=== PATIENT | female | born 1975 | race Caucasian/White ===

== ENCOUNTER → 2017-12-24 | Outpatient (REF) | payer OTHER ==
[2017-12-24 13:28] LABS: INFLUENZA A AMPLIFICATION NEGATIVE (NEGATIVE); INFLUENZA B AMPLIFICATION POSITIVE (NEGATIVE)
== END ==
LOC: M LAB REF 12:40
DX: R05 Cough (principal)

== ENCOUNTER 2018-03-01 09:34 | Day surgery (SDC) | payer OTHER ==
[~2018-03-01 09:34] MED LIST: KETOROLAC 60 MG/2 ML VIAL (J1885) As Ordered; LIDOCAINE 2% INJ 100 MG/5 ML SDV (FOR ANES.) As Ordered; MIDAZOLAM INJ 2 MG/2 ML VIAL (J2250) As Ordered; ONDANSETRON 4MG/2ML VIAL (J2405) As Ordered; PROPOFOL 200 MG/20 ML VIAL As Ordered; fentaNYL 100 MCG/2 ML INJECTION (J3010) As Ordered
[2018-03-01] MEDS: LR 1,000 ML IV (10:14)
[2018-03-01] MEDS: BUPIVACAINE HCL 0.5% 30 ML VIAL As Ordered (11:20)
[2018-03-01] MEDS: LIDOCAINE 2% MDV 20 ML VIAL As Ordered (11:20)
[2018-03-01] MEDS ORDERED: PROPOFOL 200 MG/20 ML VIAL As Ordered ×2 (11:41→11:48)
[2018-03-01] MEDS ORDERED: ONDANSETRON 4MG/2ML VIAL (J2405) As Ordered (11:50)
[2018-03-01] MEDS: BACITRACIN PWD 50,000 UNITS VIAL As Ordered (11:53)
[2018-03-01] MEDS: NEOSPORIN GU IRRIG 20 ML VIAL As Ordered (11:55)
[2018-03-01] MEDS: dexameTHASONE 4 MG/ML 1ML VIAL (J1100) As Ordered (11:55)
== END 2018-03-01 13:46 | disposition home or self-care (01) ==
LOC: M SDC 09:34
DX: G57.61 Lesion of plantar nerve, right lower limb (principal); M79.671 Pain in right foot; M32.10 Systemic lupus erythematosus, organ or system involvement unspecified; Z79.899 Other long term (current) drug therapy
CPT/HCPCS: 28080

== ENCOUNTER → 2018-04-16 | Outpatient (CLI) | payer OTHER ==
[2018-04-16 18:32] LABS: BASO # 0.1 10^3/uL (0.0-0.2); BASO % 0.7 % (0.0-1.0); EOS # 0.1 10^3/uL (0.0-0.50); EOS % 0.5 % (0.0-3.0); HEMATOCRIT 43.9 % (36.0-47.0); HEMOGLOBIN 14.7 g/dl (12.0-15.5); IMMATURE GRANULOCYTE % 0.4 % (0-3.0); LYMPH # 2.9 10^3/uL (1.5-4.5); LYMPH % 31.3 % (24.0-44.0); MEAN CORPUSCULAR HEMOGLOBIN 31.1 pg (27.0-33.0); MEAN CORPUSCULAR HGB CONC 33.5 g/dl (32.0-36.5); MEAN CORPUSCULAR VOLUME 92.8 fl (80.0-96.0); MONO # 0.5 10^3/uL (0.0-0.8); MONO % 5.8 % (0.0-5.0); NEUTROPHILS # 5.6 10^3/uL (1.8-7.7); NEUTROPHILS % 61.3 % (36.0-66.0); PLATELET COUNT, AUTOMATED 271 10^3/uL (150-450); RED BLOOD COUNT 4.73 10^6/uL (4.00-5.40); RED CELL DISTRIBUTION WIDTH 11.8 % (11.5-14.5); WHITE BLOOD COUNT 9.2 10^3/uL (4.0-10.0)
[2018-04-16 18:46] LABS: ALT/SGPT 40 U/L (12-78); AST/SGOT 23 U/L (7-37); C REACTIVE PROTEIN QUANTITATIV < 0.30 MG/DL (0.00-0.30); COMPLEMENT C3 152 MG/DL (90-180); COMPLEMENT C4 26.8 MG/DL (10-40); GLOMERULAR FILTRATION RATE > 60.0 (>58)
[2018-04-16 19:42] LABS: ERYTHROCYTE SEDIMENTATION RATE 6 mm/hr (0-20)
[2018-04-18 14:16] LABS: ANTI DOUBLE STRAND-DNA AB 4 IU/mL (0-9)
== END ==
LOC: M WUC 11:38
DX: M32.19 Other organ or system involvement in systemic lupus erythematosus (principal); Z79.899 Other long term (current) drug therapy

== ENCOUNTER → 2018-09-25 | Outpatient (REF) | payer OTHER | LOC: M LAB REF 09-26 15:55 | DX: L03.115 Cellulitis of right lower limb (principal) | CPT/HCPCS: 87186 ==

== ENCOUNTER → 2018-09-26 | Outpatient (REF) | payer OTHER | LOC: M LAB REF 13:43 | DX: L03.115 Cellulitis of right lower limb (principal) ==

== ENCOUNTER → 2019-10-22 | Outpatient (CLI) | payer OTHER ==
[~2019-10-22] MED LIST changes: +CELE1CAP9; +HYDR200T3; -KETOROLAC 60 MG/2 ML VIAL (J1885) As Ordered; -LIDOCAINE 2% INJ 100 MG/5 ML SDV (FOR ANES.) As Ordered; -MIDAZOLAM INJ 2 MG/2 ML VIAL (J2250) As Ordered; -ONDANSETRON 4MG/2ML VIAL (J2405) As Ordered; -PROPOFOL 200 MG/20 ML VIAL As Ordered; +VITA-112 PO; +VITA20008 PO; -fentaNYL 100 MCG/2 ML INJECTION (J3010) As Ordered
[2019-10-22 13:58] LABS: FREE T4 0.98 NG/DL (0.76-1.46); THYROID STIMULATING HORMONE 3.25 uIU/ML (0.358-3.740)
== END ==
LOC: M LAB 11:45
PROVIDERS: ATTEND Internal Medicine Gastroenterology
DX: R19.7 Diarrhea, unspecified (principal)

== ENCOUNTER → 2019-10-26 | Outpatient (REF) | payer OTHER | LOC: M LAB 12:30 | PROVIDERS: ATTEND Internal Medicine Gastroenterology | DX: R19.7 Diarrhea, unspecified (principal) ==

== ENCOUNTER → 2019-12-01 | Outpatient (REF) | payer OTHER ==
[2019-12-02 13:19] LABS: FERRITIN 283 NG/ML (8-252)
[2019-12-03 11:14] LABS: HEPATITIS B SURFACE ANTIGEN NEGATIVE (NEGATIVE)
[2019-12-03 11:38] LABS: HEPATITIS C VIRUS ABY INDEX < 0.0 INDEX (<0.8)
[2019-12-03 11:41] LABS: HEPATITIS B CORE ANTIBODY IGM NEGATIVE (NEGATIVE)
[2019-12-03 11:44] LABS: HEPATITIS A ANTIBODY IGM NEGATIVE (NEGATIVE)
== END ==
LOC: M LAB REF 12:22
PROVIDERS: ATTEND Internal Medicine
DX: R74.8 Abnormal levels of other serum enzymes (principal); E66.01 Morbid (severe) obesity due to excess calories

== ENCOUNTER → 2020-01-12 | Outpatient (REF) | payer OTHER ==
[~2020-01-12] MED LIST changes: +VITAD1000T PO
[2020-01-15 00:06] LABS: CERULOPLASMIN 29.2 mg/dL (19.0-39.0)
== END ==
LOC: M LAB REF 12:19
PROVIDERS: ATTEND Internal Medicine
DX: R74.0 Nonspecific elevation of levels of transaminase and lactic acid dehydrogenase [LDH] (principal)

== ENCOUNTER → 2020-01-16 | Day surgery (SDC) | payer OTHER ==
[~2020-01-16] VITALS: Ht 149.9 cm; Wt 103.3 kg
[~2020-01-16] MED LIST changes: +LIDOCAINE 2% INJ 100 MG/5 ML SDV (FOR ANES.) As Ordered ONE; +NS 1,000 ML IV ONE; +propofoL 200 MG/20 ML VIAL As Ordered ONE
--- NOTE | 2020-01-16 09:29 | ROOR ---
Patient Name: Camille Aguilar Procedure Date: 01/16/2020 9:03 AM Date of : 1975 Age: 44 Room: [facility] Gender: Female Note Status: Finalized Procedure: Colonoscopy Indications: Clinically significant diarrhea of unexplained origin, Suspected irritable bowel syndrome Providers: Aayush GARCIA MD Referring MD: Paige MARKHAM MD Requesting Provider: Medicines: Monitored Anesthesia Care Complications: No immediate complications. Procedure: Pre-Anesthesia Assessment: - The heart rate, respiratory rate, oxygen saturations, blood pressure, adequacy of pulmonary ventilation, and response to care were monitored throughout the procedure. The Colonoscope was introduced through the anus and advanced to 10 cm into the ileum. The colonoscopy was performed without difficulty. The patient tolerated the procedure well. The quality of the bowel preparation was good. Findings: The perianal and digital rectal examinations were normal. Pertinent negatives include no anal lesion or abnormality. The terminal ileum appeared normal. Mild sigmoid diverticulosis and small internal hemorrhoids. The exam was otherwise normal throughout the examined colon. Biopsies for histology were taken with a cold forceps for evaluation of microscopic colitis. Impression: - The perianal exam and examined portion of the ileum was normal. - Mild sigmoid diverticulosis and small internal hemorrhoids. - The colon is otherwise normal. - Biopsies were taken with a cold forceps for evaluation of microscopic colitis. Recommendation: - Discontinue Bentyl (dicyclomine). - Use Levbid 0.375 mg Extended Tabs 1-2 tabs PO every 8-12 hours PRN. - Telephone endoscopist for pathology results in 2 weeks. - (the script was sent to your pharmacy on file) Aayush Garcia MD Aayush GARCIA MD 01/16/2020 9:28:25 AM Electronically signed by Aayush GARCIA MD Number of Addenda: 0 Note Initiated On: 01/16/2020 9:03 AM Estimated Blood Loss: Estimated blood loss: none.
[2020-01-16 09:45] VITALS: BP 131/73
== END | disposition home or self-care (01) ==
LOC: M OPP 08:22
PROVIDERS: ATTEND Internal Medicine Gastroenterology
DX: K64.8 Other hemorrhoids (principal); K57.30 Diverticulosis of large intestine without perforation or abscess without bleeding; D12.6 Benign neoplasm of colon, unspecified; R19.7 Diarrhea, unspecified; Z79.84 Long term (current) use of oral hypoglycemic drugs; Z79.899 Other long term (current) drug therapy; Z88.1 Allergy status to other antibiotic agents

== ENCOUNTER → 2020-03-02 | Outpatient (CLI) | payer OTHER ==
[~2020-03-02] MED LIST changes: +E-Z-GAS II EFFERVESCENT PACKET (SODIUM BICARB./CITRIC ACID/SIMETHICONE) As Ordered ONE; +E-Z-HD 98% w/w 340GM SUSP BTL As Ordered ONE; +E-Z-PAQUE 96% w/w SUSP 176GM BTL As Ordered ONE; -LIDOCAINE 2% INJ 100 MG/5 ML SDV (FOR ANES.) As Ordered ONE; -NS 1,000 ML IV ONE; -propofoL 200 MG/20 ML VIAL As Ordered ONE
--- NOTE | 2020-03-02 16:01 | REP ---
Upper GI air contrast The procedure was performed under the direct supervision of Dr. Grover. The images were reviewed with Dr. Grover The certified addiction counselor film shows no organomegaly or pathological masses. The intestinal gas pattern is non-specific. There are surgical clips noted in the right upper quadrant. Liquid barium and gas producing crystals were given in the erect position as well as liquid barium in the prone oblique position in order to perform a double contrast upper GI examination. The oral and pharyngeal stages of deglutition are unremarkable. There are esophageal transport there are mild tertiary waves demonstrated. There is no esophagitis, stricture or mucosal ring. There is a small sliding-type hiatal hernia. There is gastroesophageal reflux demonstrated to above the level of the molly. The stomach gong are normally outlined . The rugal folds are smooth and regular. There is no gastritis neoplasm or ulcer disease. The duodenal gong are normally outlined . The mucosal folds are smooth and regular. There is no duodenitis pancreatitis peptic ulcer disease or neoplasm. The visualized portion of the proximal small bowel appears normal in course and caliber. Impression: 1. Tertiary waves. 2. There is a small sliding-type hiatal hernia with gastroesophageal reflux demonstrated to above the level of the molly. 0.8 minutes of fluoro time was utilized for this procedure. Electronically Signed by BENJI Vega 03/02/2020 03:44 P Electronically Signed by Nirav Grover MD 03/02/2020 03:52 P
== END ==
LOC: M RAD 07:24
PROVIDERS: ATTEND Internal Medicine
DX: R05 Cough (principal); K30 Functional dyspepsia

== ENCOUNTER → 2020-05-04 | Outpatient (REF) | payer OTHER ==
[~2020-05-04] MED LIST changes: +D31000TA2 PO; -E-Z-GAS II EFFERVESCENT PACKET (SODIUM BICARB./CITRIC ACID/SIMETHICONE) As Ordered ONE; -E-Z-HD 98% w/w 340GM SUSP BTL As Ordered ONE; -E-Z-PAQUE 96% w/w SUSP 176GM BTL As Ordered ONE; -VITAD1000T PO
[2020-05-04 13:28] LABS: INR 0.93; PROTHROMBIN TIME 12.2 SECONDS (11.8-14.0)
[2020-05-04 13:29] LABS: PARTIAL THROMBOPLASTIN TIME 29.2 SECONDS (25.0-38.4)
[2020-05-04 14:29] LABS: FOLATE 13.2 NG/ML; PTH INTACT 47.1 PG/ML (18.5-88.0)
== END ==
LOC: M LAB REF 11:46
PROVIDERS: ATTEND Internal Medicine
DX: E66.01 Morbid (severe) obesity due to excess calories (principal)

== ENCOUNTER → 2020-05-06 | Outpatient (REF) | payer OTHER ==
[~2020-05-06] MED LIST changes: -D31000TA2 PO; +VITAD1000T PO
[2020-05-06 18:57] LABS: APPEARANCE, URINE CLOUDY (CLEAR); BACTERIA, URINE AUTO NEGATIVE (NEGATIVE); BILIRUBIN, URINE AUTO NEGATIVE (NEGATIVE); BLOOD, URINE BLOOD NEGATIVE (NEGATIVE); COLOR, URINE YELLOW (YELLOW); GLUCOSE, URINE (UA) AUTO NEGATIVE (NEGATIVE); KETONE, URINE AUTO NEGATIVE (NEGATIVE); LEUKOCYTE ESTERASE, URINE AUTO NEGATIVE (NEGATIVE); MUCUS, URINE SMALL (NEGATIVE); NITRITE, URINE AUTO NEGATIVE (NEGATIVE); PROTEIN, URINE AUTO NEGATIVE (NEGATIVE); RBC, URINE AUTO 0 /HPF (0-3); SPECIFIC GRAVITY URINE AUTO 1.024 (1.002-1.035); SQUAMOUS EPITHELIAL CELL UR AU 0 /HPF (0-6); UROBILINOGEN, URINE AUTO 0.2 mg/dL (0.0-2.0); WBC, URINE AUTO 1 /HPF (0-3)
== END ==
LOC: M LAB REF 16:13
PROVIDERS: ATTEND Internal Medicine
DX: E66.01 Morbid (severe) obesity due to excess calories (principal)

== ENCOUNTER → 2021-04-07 | Outpatient (REF) | payer OTHER ==
[~2021-04-07] MED LIST changes: +D31000TA2 PO; -VITAD1000T PO
== END ==
LOC: M LAB REF 09:24
PROVIDERS: ATTEND Surgery
DX: Z01.818 Encounter for other preprocedural examination (principal); Z79.899 Other long term (current) drug therapy

== ENCOUNTER → 2021-05-04 | Outpatient (REF) | payer OTHER ==
[2021-05-04 17:23] LABS: BACTERIA, URINE AUTO NEGATIVE (NEGATIVE); RBC, URINE AUTO 2 /HPF (0-3); SQUAMOUS EPITHELIAL CELL UR AU 0 /HPF (0-6); WBC, URINE AUTO 0 /HPF (0-3)
[2021-05-04 17:24] LABS: PERCENT SATURATION 20.1 % (13.2-45.0)
[2021-05-04 17:32] LABS: FOLATE 19.4 NG/ML
[2021-05-04 18:12] LABS: INR 0.85; PROTHROMBIN TIME 11.8 SECONDS (12.5-14.3)
[2021-05-04 18:13] LABS: PARTIAL THROMBOPLASTIN TIME 30.7 SECONDS (24.2-38.5)
== END ==
LOC: M LAB REF 16:25
PROVIDERS: ATTEND Internal Medicine
DX: Z01.818 Encounter for other preprocedural examination (principal)

== ENCOUNTER → 2021-12-14 | Outpatient (REF) | payer OTHER ==
[2021-12-14 14:56] LABS: MALB URINE SIEMENS 10.4 MG/L; MAU/CREAT RATIO 5.7 MCG/MG (0.0-30.0)
== END ==
LOC: M LAB REF 12:03
PROVIDERS: ATTEND Internal Medicine
DX: E11.9 Type 2 diabetes mellitus without complications (principal)

== ENCOUNTER → 2021-12-14 | Outpatient (REF) | payer OTHER | LOC: M LAB REF 16:11 | PROVIDERS: ATTEND Internal Medicine | DX: M32.10 Systemic lupus erythematosus, organ or system involvement unspecified (principal) ==

== ENCOUNTER 2022-06-26 03:02 | Emergency (ER) | payer OTHER ==
[~2022-06-26] VITALS: Ht 149.9 cm; Wt 71.8 kg
[~2022-06-26 03:02] MED LIST changes: -D31000TA2 PO; +VITA100093 PO
[2022-06-26] MEDS ORDERED: PANT20TA6 (03:25)
[2022-06-26 04:41] LABS: BASO % 0.3 % (0.0-1.0); EOS % 0.3 % (0.0-3.0); HEMOGLOBIN 13.6 g/dl (12.0-15.5); LYMPH # 2.5 10^3/uL (1.5-5.0); LYMPH % 15.9 % (24.0-44.0); MEAN CORPUSCULAR HEMOGLOBIN 31.3 pg (27.0-33.0); MEAN CORPUSCULAR HGB CONC 33.2 g/dl (32.0-36.5); MEAN CORPUSCULAR VOLUME 94.3 fl (80.0-96.0); MONO # 0.8 10^3/uL (0.0-0.8); MONO % 5.3 % (2.0-8.0); NEUTROPHILS # 12.1 10^3/uL (1.5-8.5); NEUTROPHILS % 77.6 % (36.0-66.0); PLATELET COUNT, AUTOMATED 243 10^3/uL (150-450); RED BLOOD COUNT 4.35 10^6/uL (4.00-5.40); WHITE BLOOD COUNT 15.6 10^3/uL (4.0-10.0)
[2022-06-26 05:18] LABS: HCG, SERUM QUALITATIVE NEGATIVE (NEGATIVE)
[2022-06-26 05:28] LABS: ALBUMIN 3.8 GM/DL (3.2-5.2); ALT/SGPT 35 U/L (12-78); AMYLASE 50 U/L (25-115); BILIRUBIN,DIRECT 0.1 MG/DL (0.0-0.2); BILIRUBIN,TOTAL 0.3 MG/DL (0.2-1.0); BLOOD UREA NITROGEN 18 MG/DL (7-18); CALCIUM LEVEL 9.4 MG/DL (8.5-10.1); CARBON DIOXIDE LEVEL 27 MEQ/L (21-32); CHLORIDE LEVEL 108 MEQ/L (98-107); GLOMERULAR FILTRATION RATE > 60.0 (>58); GLUCOSE, FASTING 188 MG/DL (70-100); LIPASE 162 U/L (73-393); SODIUM LEVEL 141 MEQ/L (136-145); TOTAL PROTEIN 7.1 GM/DL (6.4-8.2)
[2022-06-26 07:09] LABS: BILIRUBIN, URINE MANUAL NEGATIVE (NEGATIVE); GLUCOSE, URINE (UA) MANUAL NEGATIVE (NEGATIVE); KETONE, URINE MANUAL NEGATIVE (NEGATIVE); UROBILINOGEN, URINE MANUAL NORMAL (NORMAL)
[2022-06-26] MEDS ORDERED: NS 1,000 ML IV ONE (07:20)
[2022-06-26] MEDS ORDERED: KETOROLAC 30 MG/ML 1ML VIAL IV ONE (07:20)
[2022-06-26] MEDS ORDERED: METOCLOPRAMIDE INJ 10MG/2ML VIAL (J2765 PER 1) IV ONE (07:20)
[2022-06-26 07:28] LABS: RBC, URINE TNTC /hpf (0-3); SQUAMOUS EPITHELIAL CELL URINE SMALL AMOUNT /hpf (SMALL AMT)
[2022-06-26 07:33] LABS: CALCIUM OXALATE CRYSTALS,URINE LARGE AMOUNT /hpf; HYALINE CAST, URINE NONE SEEN /lpf (0-1); MUCUS, URINE SMALL AMOUNT (NEGATIVE)
[2022-06-26 07:34] LABS: BACTERIA, URINE MOD AMOUNT
[2022-06-26] MEDS ORDERED: FLOM0.4C39 PO (09:05)
[2022-06-26] MEDS ORDERED: REGL5TAB2 PO (09:05)
[2022-06-26] MEDS ORDERED: KETO10TAB PO (09:05)
[2022-06-26 09:11] VITALS: BP 105/56
== END 2022-06-26 09:24 | disposition home or self-care (01) ==
LOC: M ED 03:02
DX: N13.2 Hydronephrosis with renal and ureteral calculous obstruction (principal); I88.0 Nonspecific mesenteric lymphadenitis; Z98.84 Bariatric surgery status; Z90.710 Acquired absence of both cervix and uterus; E11.9 Type 2 diabetes mellitus without complications; K58.9 Irritable bowel syndrome, unspecified; Z90.49 Acquired absence of other specified parts of digestive tract; Z90.89 Acquired absence of other organs; Z88.8 Allergy status to other drugs, medicaments and biological substances; Z79.899 Other long term (current) drug therapy
CPT/HCPCS: 36415; 74176; 80048; 80076; 81000; 81015; 82150; 83690; 84703; 85025; 87086; 96361; 96374; 96375; 99284; J1885; J2765

== ENCOUNTER → 2022-06-28 | Outpatient (REF) | payer OTHER ==
[~2022-06-28] MED LIST changes: +FLOM0.4C39 PO; +KETO10TAB PO; +PANT20TA6; +REGL5TAB2 PO
[2022-06-28 17:04] LABS: BACTERIA, URINE AUTO 1+ (NEGATIVE); MUCUS, URINE SMALL (NEGATIVE); RBC, URINE AUTO TNTC /HPF (0-3); SQUAMOUS EPITHELIAL CELL UR AU 4 /HPF (0-6); WBC, URINE AUTO 26 /HPF (0-3)
== END ==
LOC: M LAB REF 16:13
PROVIDERS: ATTEND Internal Medicine
DX: R30.0 Dysuria (principal)

== ENCOUNTER → 2022-09-11 | Outpatient (CLI) | payer OTHER | LOC: M WUC 08:27 | PROVIDERS: ATTEND Physician Assistant | DX: M77.32 Calcaneal spur, left foot (principal) ==

== ENCOUNTER → 2022-09-28 | Outpatient (CLI) | payer OTHER | LOC: M PLALAB 13:57 | PROVIDERS: ATTEND Internal Medicine | DX: G89.11 Acute pain due to trauma (principal) ==

== ENCOUNTER → 2023-08-02 | Outpatient (REF) | payer OTHER ==
[~2023-08-02] MED LIST changes: +CELE0.09; -CELE1CAP9; -HYDR200T3; +HYDR200T46
[2023-08-02 12:30] LABS: FERRITIN 98.1 NG/ML (7.3-270.7); FOLATE 23.6 NG/ML (>5.4)
== END ==
LOC: M LAB REF 11:32
PROVIDERS: ATTEND Internal Medicine
DX: Z98.84 Bariatric surgery status (principal)

== ENCOUNTER → 2023-10-19 | Outpatient (CLI) | payer OTHER | LOC: M WUC 10:57 | PROVIDERS: ATTEND Internal Medicine | DX: R05.9 Cough, unspecified (principal) ==

== ENCOUNTER → 2024-08-04 | Outpatient (REF) | payer OTHER ==
[2024-08-04 19:22] LABS: FERRITIN 85.2 NG/ML (7.3-270.7); FOLATE > 24.0 NG/ML (>5.4); VITAMIN B12 LEVEL 914 PG/ML (211-911)
== END ==
LOC: M LAB REF 16:48
PROVIDERS: ATTEND Internal Medicine
DX: Z98.84 Bariatric surgery status (principal)

== ENCOUNTER → 2025-09-11 | Outpatient (REF) | payer OTHER ==
[~2025-09-11] MED LIST changes: -FLOM0.4C39 PO; +TAMS-18 PO
[2025-09-11 13:05] LABS: COMPLEMENT C4 29.1 MG/DL (12-36)
[2025-09-11 13:08] LABS: VITAMIN B12 LEVEL 503.0 PG/ML (211-911)
[2025-09-14 11:46] LABS: ANTI CENTROMERE ANTIBODY <1.0 NEG AI (<1.0 NEG); ANTI SCLERODERMA ANTIBODIES <1.0 NEG AI (<1.0 NEG); RNP ANTIBODY <1.0 NEG AI (<1.0 NEG); SSA SJOGRENS A <1.0 NEG AI (<1.0 NEG); SSB SJOGRENS B <1.0 NEG AI (<1.0 NEG)
== END ==
LOC: M LAB REF 11:50
PROVIDERS: ATTEND Internal Medicine
DX: K76.0 Fatty (change of) liver, not elsewhere classified (principal); Z79.899 Other long term (current) drug therapy; Z98.84 Bariatric surgery status